=== PATIENT | female | born 1960 | race Caucasian/White ===

== ENCOUNTER 2018-04-13 14:55 | Observation (INO) | payer MEDICAID ==
[~2018-04-13] VITALS: Ht 172.7 cm; Wt 116.9 kg
--- NOTE | 2018-04-13 20:50 | NUR ---
pt ARRIVED ON FLOOR. SBA. IVF BOLUS STARTED. PAIN 5/10, PRN PAIN MED GIVEN (SEE MAR). WATER PROVIDED. VSS. UP TO TOILET TO URINATE. CALL LIGHT WITHIN REACH. NO FURTHER REQUESTS AT THIS TIME.
--- NOTE | 2018-04-13 23:00 | NUR ---
CALL LIGHT ON. pt UP TO TOILET AND BACK TO BED. NO REQUESTS AT THIS TIME. CALL LIGHT WITHIN REACH.
--- NOTE | 2018-04-14 01:04 | NUR ---
CALL LIGHT ON. pt REQUESTED PAIN MEDICATION. PRN PAIN MEDS GIVEN OXY FOR ABD PAIN AND TYLENOL FOR HEADACHE (SEE MAR). PRN NAUSEA MED GIVEN FOR NAUSEA (SEE MAR). pt AMBULATED TO TOILET AND BACK TO BED. CALL LIGHT WITHIN REACH.
--- NOTE | 2018-04-14 02:59 | NUR ---
ASSESSMENT AND VITALS DUE. ASSESSMENT DONE. pt UP TO TOILET AND SHOWER. BACK TO BED. VITALS DONE. EDUCATION PACKET PROVIDED. IVF INFUSING. pt REPORTED HEADACHE IS "GONE" AND ABD PAIN IS 3/10. REFUSED PAIN MEDICATION AT THIS TIME. CALL LIGHT WITHIN REACH. LIGHTS OFF FOR COMFORT. NO FURTHER REQUESTS AT THIS TIME.
--- NOTE | 2018-04-14 05:19 | NUR ---
pt RESTED ON AND OFF DURING SHIFT. ABDOMINAL PAIN CONTROLLED WITH OXY. REPORTED HEADACHE WHICH RESPONDED WELL TO TYLENOL. PRN NAUSEA MEDS X1. SBA. SHOWERED. VOIDING QS. IVF INFUSING. TOLERATING CLEAR LIQUID DIET. USES CALL LIGHT APPROPRIATELY.
--- NOTE | 2018-04-14 08:30 | NUR ---
PT IS RESTING ON BED WITH EYES CLOSED, STATES SHE CONT. TO HAVE A HEADACHE BUT IS BETTER AFTER TYLENOL. STATES SHE JUST WANTS TO SLEEP.
--- NOTE | 2018-04-14 11:03 | NUR ---
PT C/O INCREASING HEADACHE, STATES SHE DRINKS 1-2L OF MOUNTAIN DEW A DAY. SPOKE WITH DR JARVIS. RECIEVED ORDERS TO DECREASE IV RATE TO 100, IBUPROFEN ORDERED. SPOKE WITH KITCHEN AND THEY WILL BRING PT UP SOME MOUNTAIN DEW TO SEE IF IT WILL IMPROVE HEADACHE.
--- NOTE | 2018-04-14 11:55 | NUR ---
PT SITTING UP ON EDGE OF BED WRETCHING, PHENERGAN 12.5MG IV GIVEN DILUTED SLOWLY AND PT ASSISTED BACK TO BED WITH COLD CLOTH TO FORHEAD. IVF INFUSING. STATES SHE IS BEGINNING TO FEEL BETTER.
--- NOTE | 2018-04-14 12:13 | NUR ---
PATIENT SITTING UP IN BED. IV COVERED. SETS UP BATHROOM FOR SHOWER. PATIENT TAKES A SHOWER. LINENS CHANGED. NO OTHER NEEDS AT THIS TIME
--- NOTE | 2018-04-14 12:14 | NUR ---
PT STATES NAUSEA HAS RESOLVED, ASKED TO GET UP TO SHOWER. IVF SL FOR SHOWER WITH INTERIOR DESIGN CONSULTANT IN ROOM AT THIS TIME.
--- NOTE | 2018-04-14 12:31 | NUR ---
TOLERATED SHOWER WELL, STATES SHE IS FEELING MUCH BETTER, HEADACHE IS ALMOST GONE, NO NAUSEA, ASKED IF DIET COULD BE ADVANCED BUT WANTS HER TO CONT. ON FULL LIQUIDS FOR NOW.
--- NOTE | 2018-04-14 14:45 | NUR ---
PT TOSSING AND TURNING IN BED IN OBVIOUS DISCOMFORT. SHE SAID SHE HAD A BAD HEADACHE-6 ON PAIN SCALE. REQUESTED TO SEE HER RN. I INFORMED KENNEL ASSISTANTLINO EWING, SHE FOLLOWED UP.
--- NOTE | 2018-04-14 14:45 | NUR ---
PT C/O HEADACHE AGAIN, OXYCODONE 5MG GIVEN. PT REQUESTED 2 SHERBERTS, DENIES NAUSEA. CALL LIGHT IN EASY REACH.
--- NOTE | 2018-04-14 20:00 | NUR ---
PATIENT RESTING QUIETLY ON HER LEFT SIDE, EYES CLOSED, RESPIRATIONS REGULAR AND NORMAL AT 16.
--- NOTE | 2018-04-14 22:24 | NUR ---
vitals and I&Os complete patient didnt need anything at his time.
--- NOTE | 2018-04-14 23:00 | NUR ---
PATIENT C/O 08/24 ABD PAIN. PATIENT REFUSED OXYCODEONE AND SAID,"IT DOES NOT WORK AT ALL." PREMEDICATED WITH IV ZOFRAN 4MG AND 4MG IV MORPHINE GIVEN SIVP AND PATIENT HAS HAD HER PM MEDS. PATIENT ASKING FOR PHENERGAN, BUT THIS WAS NOT DUE.
--- NOTE | 2018-04-15 | NUR ---
PATIENT RESTING QUIETLY, EYES CLOSED, RESPIRATIONS REGULAR AND EVEN AT 16, CALL LIGHT IN REACH.
--- NOTE | 2018-04-15 02:40 | NUR ---
PATIENT CALLED HAVING 7/10 ABD PAIN. 12.5MG OF PHENERGAN AND 4MGIV MS GIVEN IN 20ML NS SIVP. PAIN HAS ALREADY DROPPED TO A 3/10. PATIENT HAD ME GET HER A COUPLE OF MOUNTAIN DEWS. AM ASSESSMENT DONE. CALL LIGHT IN REACH PATIENT IS GOING TO TRY AND GO [place] TO SLEEP.
--- NOTE | 2018-04-15 04:11 | NUR ---
PATIENT RESTING QUIETLY EYES CLOSED, RESPIRATIONS REGULAR AND EVEN AT 16, ON RIGHT SIDE. CALL LIGHT IN REACH.
--- NOTE | 2018-04-15 05:37 | NUR ---
PATIENT'S PAIN STILL 2-3/10 AND PATIENT IS COMFORTABLE AND NOT ASKING FOR MEDS AT THIS TIME. PATIENT WAS GIVEN 4MG IV MS X2 THIS SHIFT FOR 7/10 OF PAIN. PAIN CONTROL WORKED MUCH BETTER WITH 12.5 MG PHENERGAN IV REQUESTED THE AFTER 2 AM MIXED IN 20 MLS SALINE AND GIVEN SIVP. PATIENT HAS HAD NO OTHER COMPLAINTS.
--- NOTE | 2018-04-15 07:15 | NUR ---
BEDSIDE HANDOFF REPORT RECEIVED FROM DIRECTOR MEDICARE SALES RN. PT RESTING IN BED. LR AT 100. PT RATING PAIN 2/10. PT DENIES NEEDS AT THIS TIME.
--- NOTE | 2018-04-15 08:07 | NUR ---
MED REC COMPLETE
--- NOTE | 2018-04-15 09:25 | NUR ---
PT RESTING IN BED. PT ON ROOMA IR, LUNG SOUNDS CLEAR, DENIES SOB. PT DENIES PAIN, DENIES NAUSEA, TOLERATED CLEAR LIQUID, BOWEL TONES ACTIVE. IV FLUIDS INFUSING LR AT 100 ML/HR. CMS INTACT, WIHTOUT EDEMA. DISCUSSED PLAN OF CARE FOR THE DAY, PT HOPING TO DISCHARGE. DISCUSSED WITH MD, ORDER TO TRY FULL LIQUIDS TO SEE IF PT TOLERATES.
--- NOTE | 2018-04-15 10:00 | NUR ---
Pt is lying comfortably in bed watching tv. Denies pain, nausea, and other complaints at this time. Continues to be on clear liquid diet; consumed 50% of breakfast and tolerated it well; denies abdominal pain with palpation. Call light in reach, personal possessions in reach
== END 2018-04-15 12:10 | disposition home or self-care (01) ==
LOC: ED 14:55 → MS 14:57
PROVIDERS: ADMIT Internal Medicine
DX: K85.00 Idiopathic acute pancreatitis without necrosis or infection (principal); M13.0 Polyarthritis, unspecified; R51 Headache; F17.210 Nicotine dependence, cigarettes, uncomplicated; F43.10 Post-traumatic stress disorder, unspecified; S06.9X0S Unspecified intracranial injury without loss of consciousness, sequela; R41.3 Other amnesia; Z90.49 Acquired absence of other specified parts of digestive tract; Z79.1 Long term (current) use of non-steroidal anti-inflammatories (NSAID)
CPT/HCPCS: 36415; 74177; 80053; 80061; 81001; 82150; 83690; 85025; 96361; 96375; 96376; 99285-25; 99406; C9113; G0378; J1170; J2270; J2405; J2550; J7030; J7120; Q9967

== ENCOUNTER 2018-11-05 21:28 | Emergency (ER) | payer OTHER ==
[~2018-11-05] VITALS: Ht 172.7 cm; Wt 90.7 kg
[~2018-11-05 21:28] MED LIST: NAPROXEN500 MG PO; REMERON30 MG PO
== END 2018-11-05 23:17 | disposition home or self-care (01) ==
LOC: ED 21:28
DX: M25.551 Pain in right hip (principal); M25.552 Pain in left hip; G89.29 Other chronic pain
CPT/HCPCS: 99283

== ENCOUNTER 2018-12-26 06:55 | Inpatient (IN) | payer OTHER ==
--- NOTE | 2018-12-13 12:22 | NUR ---
PATIENT HERE TODAY FOR PREADMISSION APPOINTMENT. SHE IS SCHEDULED ON 12/26/18 FOR A LEFT TOTAL HIP ARTHROPLASTY. SHE IS SCHEDULED TO ATTEND THE [facility] WITH PHYSICAL THERAPY ON 12/15/18. SHE HAS 2 STEPS INTO THE HOME AND NO STEPS INSIDE THE HOME. THERE IS A TUB SHOWER COMBO. SHE IS OBTAINING A SHOWER BENCH AND RAISED TOILET SEAT. SHE DOES NOT HAVE A FRONT WHEELED WALKER BUT [facility]. SHE GO[facility] THROUGH [facility] AND WILL CONTACT THEM REGARDING OBTAINING ONE. HER FRIEND HAS BEEN STAYING WITH HER (ABHILASH) AND WILL TRANSPORT HER HOME WHEN SHE IS DISCHARGED. THIS INFORMATION WILL BE SENT TO DR GILLIS OFFICE AND CASE MANAGEMENT FOR FURTHER FOLLOW UP.
[~2018-12-26] VITALS: Ht 172.7 cm; Wt 113.4 kg
[~2018-12-26 06:55] MED LIST changes: +VITAMIN B125000 MCG PO; +VITAMIN D31000 UNIT PO
--- NOTE | 2018-12-26 09:41 | NUR ---
PT IS ALERT, ORIENTED AND STATED SHE HAS BEEN WAITING 8 YRS FOR THIS SURBERY AND 2 MORE TO COME-BOTH JOINTS. SHE HAD FEW QUESTIONS, DID STATE THAT SHE WAS CHILLED AND HAD LINO RAGSDALE BRING IN A BLANKET.PT REQUESTED PRAYER, WILL FOLLOW NEEDED
--- NOTE | 2018-12-26 13:56 | NUR ---
12/26/18 1356 Nicole Huynh 1308 PT ARRIVED IN PACU SLEEPY WITH NO C/O'S. EVELYN DRSG CDI WITH GREEN LITE FLASHING. 1315 PELVIS XRAY DONE. 1320 HIP CRYO PLACED ON PT. OXYGEN SATS DROPPED TO 86% ON RA. ENCOURAGED COUGH, DEEP BREATHING WITH SATS INCREASING TO 89-90%. O2 AT 2L VIA NC PLACED. SATS 96%. 1330 C/O L HIP PAIN AND LOWER BACK PAIN 09/24. 1337 OFIRMEV 1GM GIVEN IVP. 1355 MOVING AROUND IN BED C/O LOWER BACK PAIN. OFFERED WARM BLANKET TO BACK AND REPOSITIONING ON SIDE. PT REFUSED. STATES "I'LL JUST DEAL WITH IT."
--- NOTE | 2018-12-26 14:34 | NUR ---
PT ARRIVED FROM PACU VIA HOSPITAL BED. AWAK BUT DROWSY, ORIENTED TO ALL. PT REPORTS 8/10 LOW BACK PAIN. ASSISTED PT TO REPOSITION LEGS, ELEVATE RIGHT LEG ON PILLOW PER HER REQUEST. PT NOW APPEARS TO BE SLEEPIN SOUNDLY. VS OBTAINED. LEFT HIP WITH EVELYN DRESSING, CDI, GREEN LIGHT FLASHING. CRYO CUFF TO LEFT HIP. TEDS AND SCD'S IN PLACE TO BLE. IV TO RIGHT FA DRESSING CDI, FLUSHES EASILY. CALL LIGHT WITHIN REACH.
--- NOTE | 2018-12-26 15:40 | NUR ---
PT C/O SEVERE LOWER BACK PAIN. REFUSED OXYCODONE. ASSISTED PT TO REPOSITION TO CHAIR POSITION IN BED. PT REPORTS SIGNIFICANT PAIN RELIEF WITH CHANGE OF POSITION. PAULA CLEAR LIQUIDS, ORDERING DINNER NOW. FAMILY AT BEDSIDE. DENIES NAUSEA OR OTHER CONCERNS AT THIS TIME. CALL LIGHT WITHIN REACH.
--- NOTE | 2018-12-26 16:06 | OR ---
[facility] [address] [place], [place] [address] Signed DATE OF OPERATION: 12/26/2018 SURGEON: Ashish Espino MD PREOPERATIVE DIAGNOSIS: Degenerative joint disease, left hip. POSTOPERATIVE DIAGNOSIS: Degenerative joint disease, left hip. PROCEDURE PERFORMED: Left total hip arthroplasty with anterior approach. FRAME COVERER: Heather Harkins PA-C. Heather was present and critical for all portions of procedure. ANESTHESIA: Spinal. BLOOD LOSS: 300 mL. IMPLANTS: Size 6 Betzy Accolate II with a 52 cup, -5 head. BRIEF HISTORY: Lisa is a 58-year-old female with progressive worsening of osteoarthritis in the hip. She wished to proceed with surgery. Risks, benefits, and alternatives were discussed at length. She understands and wished to proceed. DESCRIPTION OF PROCEDURE: Once consent was obtained, she was taken to the operating room. After adequate anesthesia, she was placed on operating room table. All downside pressure points were well padded. The left hip was prepped and draped in a standard sterile fashion. The anatomy was then laid out using the image intensifier and the incision was made 1 fingerbreadth lateral and 2 distal to the ASIS and extended distally. It should be noted that the anatomy is little bit difficult to feel due to her body habitus. This was taken through skin and subcutaneous tissue. The fascia was then split longitudinally and the tensor fascia catalina was then dissected free off the undersurface Electronically Signed By: ASHISH ESPINO MD 12/26/18 1606 PATIENT NAME: LISA LANIER OPERATIVE REPORT DATE OF : 64 REPORT #: [id number] PHYSICIAN: ASHISH ESPINO MD PCP: NO PRIMARY CARE PHYSICIAN REPORT IS CONFIDENTIAL AND NOT TO BE RELEASED WITHOUT AUTHORIZATION [facility] [address] [place], [place] [address] Signed of the fascia. This allowed visualization of the anterior capsule around the femoral neck. Position was again checked using the image intensifier and we were in the correct position. Anterior capsulotomy was then performed and several large loose bodies were removed. The femoral neck cut was made just below the femoral head and about 1 fingerbreadth above the lesser trochanter. The napkin ring of bone was then removed and the femoral head was removed with ease. The periacetabular soft tissue was removed. To enable better mobilization of the femur, the releases were performed in the superior and posterior aspect of the femur and inferiorly around to the level of the lesser trochanter. The acetabulum was then reamed up to a 52 and 52 cup was selected. The acetabular reaming was done under image intensifier guidance. The 52 cup was then impacted until it was about 45 degrees of abduction and 20 degrees of anteversion. We placed one screw in the posterosuperior quadrant. The acetabular liner was then impacted until it was well seated. Attention was then turned to the proximal femur. Due to again to the patient's body habitus, it was difficult to mobilize the femur, however, with more releases and traction, we were able to get the femur delivered. It was then sequentially broached. It was opened using the [employer] cutter followed by the curved awl and then broached up to a 6. The 6 was found to be well fitting and was left in position with a standard offset neck and -5 head. We then reduced the hip. Image intensifier images looked good. The fit and fill looked good. We then dislocated the hip, removed the trial. The final stem was then impacted until seated at the same level as the trial. This was a little bit proud of my neck cut. The -5 head was placed and the hip was reduced. Again, leg lengths were found to be equal. She was a little bit tight in internal rotation and external rotation was about 45 degrees. The wound was copiously irrigated with normal saline and a dilute povidone-iodine mixture. This was then washed out with further saline. Fascia was then closed using #2 Stratafix, subcutaneous tissue with 0 Stratafix, and skin with 2-0 Stratafix, and Dermabond mesh. She tolerated the procedure well. All sponge, needle, and instrument counts were correct. The wound was dressed with a EVELYN wound VAC dressing at the end of the procedure. Ashish Espino MD BA/MODL /[id number] Electronically Signed By: ASHISH ESPINO MD 12/26/18 1606 PATIENT NAME: LISA LANIER OPERATIVE REPORT DATE OF : 64 REPORT #: [id number] PHYSICIAN: ASHISH ESPINO MD PCP: NO PRIMARY CARE PHYSICIAN REPORT IS CONFIDENTIAL AND NOT TO BE RELEASED WITHOUT AUTHORIZATION [address] [address] Signed Copies: ~ Electronically Signed By: ASHISH ESPINO MD 12/26/18 1606 PATIENT NAME: YANNICKPRIMITIVO OPERATIVE REPORT DATE OF : 64 REPORT #: [id number] PHYSICIAN: ASHISH ESPINO MD PCP: NO PRIMARY CARE PHYSICIAN REPORT IS CONFIDENTIAL AND NOT TO BE RELEASED WITHOUT AUTHORIZATION
--- NOTE | 2018-12-26 17:10 | NUR ---
PT REMAINS IN CHAIR POSITION IN BED. DENIES BACK PAIN AT THIS TIME. VERY DROWSY. SATTING 97% ON 1LNC. LEFT HIP DRESSING REMAIN CDI. SENSATION RETURNED ALL THE WAY TO TOES, GOOD MOVEMENT OF BLE. CALL LIGHT WITHIN REACH.
--- NOTE | 2018-12-26 18:21 | NUR ---
PT 2PA WITH WALKER TO POVOT TRANSFER TO [facility]. PT HAD DIFFICULTY GETTING LEFT LEG UNDER HERSELF STATED "IT'S STILL NUMB, I CAN'T FEEL WHERE IT IS." PT WAS VERY UNSTEADY. VOIDED LARGE AMOUNT WITH INCONTINENT VOID IN BED. PUT ON PT PERSONAL GOWN PER REQUEST. PULL UP ATTENDS IN PLACE. PT ASSISTED TO CHAIR BY PUTTING CHAIR RIGHT BEHIND PT. PT NOW REPORTS 9/10 LEFT HIP PAIN. MEDICATED WITH 10MG PRN OXY. PT NOW ON THE PHONE CHATTING WITH FRIEND, LAUGHIN AND SMILING. O2 SAT 96% ON 1LN NC. SECOND DINNER ORDERED AT THIS TIME. CALL LIGHT WITHIN REACH, FEET ELEVATED.
--- NOTE | 2018-12-26 19:33 | NUR ---
PT UP IN CHAIR, RESTING WITH EYES CLOSED. SHIFT REPORT RECIEVED FROM KAELYN HUYNH. CALL LIGHT IN REACH.
--- NOTE | 2018-12-26 21:31 | NUR ---
PT RESTING IN BED, VISITING WITH FAMILY. SCHEDULED MEDS PROVIDED. NO OTHER NEEDS AT THIS TIME. CALL LIGHT IN REACH.
--- NOTE | 2018-12-26 22:00 | NUR ---
CALL LIGHT ANSWERED. PATIENT ASKED FOR PAIN MEDICATION. PRIMARY RN JAVID NOTIFIED.
--- NOTE | 2018-12-26 22:25 | NUR ---
PT PAIN 5/10, PRN PAIN MED PROVIDED. ASSESSMENT COMPLETED. CRYO CUFF ON, EVELYN CDI, BLINKING GREEN, HEEL PROTECTORS ON. INCISION DRESSING CDI, WNL. ICE FOR DRINK AND SANDWICH PROVIDED. NO OTHER NEEDS. CALL LIGHT IN REACH.
--- NOTE | 2018-12-27 01:14 | NUR ---
PT RESTING IN BED, WATCHING TV. SCHEDULED MED PROVIDED. NO NEEDS AT THIS TIME. CALL LIGHT IN REACH.
--- NOTE | 2018-12-27 03:43 | NUR ---
PT RESTING IN BED, EYES CLOSED. RR 20, EVEN, UNLABORED. CPOX 92%, RA. CALL LIGHT IN REACH.
--- NOTE | 2018-12-27 04:54 | NUR ---
PT SLEPT OFF AND ON THIS SHIFT. SPO2 TRENDING MID 90S ON RA. PAIN WELL MANAGED WITH SCHEDULED AND PRN PAIN MEDS. EVELYN CDI, FLASHING GREEN. PT TOLERATED CRYO CUFF, DANIA HOSE, SCDs, HEEL PROTECTORS AND REGULAR DIET WELL.
--- NOTE | 2018-12-27 05:10 | NUR ---
PT SLEPT OFF AND ON THIS SHIFT. SPO2 TRENDING MID 90S ON RA. PAIN WELL MANAGED WITH SCHEDULED AND PRN PAIN MEDS. EVELYN CDI, FLASHING GREEN. PT TOLERATED CRYO CUFF, DANIA HOSE, SCDs, HEEL PROTECTORS AND REGULAR DIET WELL. 2P ASSIST WITH GAIT BELT TO [facility]. IV CDI, WNL, FLUSHED WELL. VSS. A&O X4.
--- NOTE | 2018-12-27 06:17 | NUR ---
PT STATES PAIN 6/10. PRN PAIN MED PROVIDED. ASSESSMENT COMPLETED. SMAKK AREA OF SANGUINOUS BLOOD ON EVELYN, FLASHING GREEN. NO OTHER NEEDS AT THIS TIME. CALL LIGHT IN REACH.
--- NOTE | 2018-12-27 08:10 | NUR ---
PT SITTING UP IN BED EATING BREAKFAST, PAULA WELL. DENIES PAIN AT THIS TIME. REPORTS NUMBNESS OF MOST OF LEFT HIP BUT REPORTS FULL SENSATION THROUGHOUT THE REST OF BLE. PENCIL ERASER SIZED SPOT OF RED BLOOD NOTED ON EVELYN DRESSING, GREEN LIGHT FLASHING. CRYO CUFF TO LEFT HIP. SCD'S AND TEDS IN PLACE TO BLE. IV FLUSHES EASILY, DRESSING CDI. CALL LIGHT WITHIN REACH.
--- NOTE | 2018-12-27 10:30 | NUR ---
PATIENT SITTING UP IN BED WATCHING TV. FACE AND HANDS WASHED. ORAL CARE DONE. FRESH ICE PUT INTO CRYO. CALL BUTTON IN REACH. SCD'S ON. CALL BUTTON IN REACH. NO OTHER NEEDS AT THIS TIME.
--- NOTE | 2018-12-27 11:50 | NUR ---
PT CALLED FOR ASSISTANCE TO RESTROOM. PT 2PA WITH WALKER TO [facility]. MUCH MORE STABLE ON FEET THIS TIME. ABLE TO TAKE SMALL STEPS. PT STATE "I CAN ACTUALLY FEEL MY BUTT A LITTLE BIT THIS MORNING." VOIDED LARGE AMOUNT THEN AMB SHORT DISTANCE TO RECLINER. SITTING UP WITH FEET ELEVATED. NOW EATING LUNCH. DENIES PAIN OR OTHER CONCERN. CALL LIGHT WITHIN REACH.
--- NOTE | 2018-12-27 12:30 | NUR ---
PT RESTING IN BED, MENTIONED THAT SHE HAD A ROUGH NIGHT. LEG IS STILL NUMB, P.T. HAS NOT YET BEEN IN. PT HAD TO SLEEP ON HER BACK AND THAT WAS NOT HOW SHE IS ACCUSTOMED TO SLEEPING. RM DARK AND COOL, GAVE ENCOURAGEMENT AND A BLESSING. WILL FOLLOW NEEDED
[2018-12-27] MEDS ORDERED: OMEPRAZOLE40 MG PO (13:05)
--- NOTE | 2018-12-27 13:05 | NUR ---
MED REC COMPLETE
--- NOTE | 2018-12-27 13:48 | NUR ---
ADMINISTERED 2 TABS OXYCODONE, PATIENT WORKING WITH PHYSICAL THERAPY. RATES PAIN 6/10 ON PAIN SCALE REPORTS CONCERNED BLOCK WEARING OFF.
--- NOTE | 2018-12-27 14:28 | NUR ---
PT RETURNED TO ROOM AFTER AMB HALLWAY WITH P.T. SITTING UP IN RECLINER NOW. REPORTS 07/25 LEFT HIP PAIN. MEDICATED WITH SCHEDULED TYLENOL AND GABAPENTIN. CALL LIGHT WITHIN REACH.
--- NOTE | 2018-12-27 15:50 | NUR ---
PT 1PA WITH WALKER TO AMB TO RESTROOM, VOIDED WITHOUT DIFFICUTLY. AMB TO BED. PT TUCKED INTO BED. SCD'S AND TEDS IN PLACE BLE. CRYO CUFF TO LEFT HIP. PT DENIES PAIN AT THIS TIME. STATES SHE WOULD LIKE TO TAKE A NAP. CALL LIGHT AND PERSONAL BELONGINGS WITHIN REACH.
--- NOTE | 2018-12-27 17:10 | NUR ---
PT MEDICATED WITH SCHEDULED MEDS. ASSISTED TO BSC AND BACK TO BED. PT REPORTS FEELING VERY TIRED "I HAVE ONLY BEEN ABLE TO SLEEP A COUPLE HOURS AT A TIME." DINNER ARRIVING SOON. ENCOURAGED PT TO TRY AND GET SOME REST AFTER DINNER. DENIES PAIN AT THIS TIME. LEFT HIP DRESSING REMAINS UNCHANGED. CALL LIGHT WITHIN REACH.
--- NOTE | 2018-12-27 19:05 | NUR ---
SHIFT REPORT RECIEVED FROM KAELYN HUYNH. PT RESTING WITH EYES CLOSED. CALL LIGHT IN REACH.
--- NOTE | 2018-12-27 21:12 | NUR ---
PT ASSESSMENT COMPLETED. EVELYN INTACT, FLASHING GREEN. BLE TINGLING. SWELLING NOTED NEAR EVELYN ON ANTERIOR THIGH. SCHEDULED MEDS PROVIDED. PAIN 6/10, PRN PAIN MED PROVIDED. NO OTHER NEEDS AT THIS TIME. CALL LIGHT IN REACH.
--- NOTE | 2018-12-27 23:24 | NUR ---
PT RESTING IN BED, EYES CLOSED. RR 18, EVEN, UNLABORED. BED ALARM ON, CALL LIGHT IN REACH.
--- NOTE | 2018-12-28 01:25 | NUR ---
PT RESTING IN BED, EYES CLOSED. RR 16, EVEN, UNLABORED. CALL LIGHT IN REACH.
--- NOTE | 2018-12-28 02:58 | NUR ---
PT UP TO BR AND BACK TO BED WITH MILLI HUYNH. PAIN 8/10, PRN PAIN MED PROVIDED. NO OTHER NEEDS AT THIS TIME. CALL LIGHT IN REACH.
--- NOTE | 2018-12-28 03:00 | NUR ---
PT CALLS FOR BR AND PAIN MANAGEMENT. PRN PAIN MED PROVIDED. UP TO BR AND BACK TO BED 1P SBA. ASSESSMENT COMPLETED. NO OTHER NEEDS. CALL LIGHT IN REACH.
--- NOTE | 2018-12-28 03:37 | NUR ---
PT RESTING IN BED, EYES CLOSED.RR 18, EVEN, UNLABORED. CRYO CUFF, DANIA HOSE, HEEL PROTECTORS AND SCDs ON. CALL LIGHT IN REACH.
--- NOTE | 2018-12-28 05:26 | NUR ---
PT SLEPT ON AND OFF THIS SHIFT. PAIN WELL MANAGED WITH SCHEDULED AND PRN PAIN MEDS. PT TOLERATED CRYO CUFF, DANIA HOSE, HEEL PROTECTORS AND SCDs WELL. 1P SBA, FWW. BED ALARMS ON. EVELYN HAS 2 SMALL AREAS OF DRY SANGUINOUS BLOOD, FLASHING GREEN. MILD SWELLING TO LEFT HIP. IV CDI, WNL, FLUSHED WELL.
--- NOTE | 2018-12-28 05:55 | NUR ---
PT WAKES TO VOICE. SCHEDULED MED PROVIDED. PAIN 07/25. VS, I&O COMPLETED. NO OTHER NEEDS AT THIS TIME. BEED ALARM ON, CALL LIGHT IN REACH.
--- NOTE | 2018-12-28 06:51 | NUR ---
PT PAIN 09/24. PRN PAIN MED PROVIDED. NO OTHER NEEDS. CALL LIGHT IN REACH. BED ALARM ON.
--- NOTE | 2018-12-28 07:20 | NUR ---
report received pt sleeping soundly
--- NOTE | 2018-12-28 09:00 | NUR ---
PT UP TO TOILET DOES WELL AMBULATING REFUSES TO GO TO CHAIR RETURNS TO BED INSTEAD
--- NOTE | 2018-12-28 11:12 | NUR ---
PATIENT RESTING IN BED WITH EYES CLOSED. FRESH ICE WATER GIVEN. CALL BUTTON IN REACH.
--- NOTE | 2018-12-28 11:14 | NUR ---
ICE IN CRYO
--- NOTE | 2018-12-28 11:30 | NUR ---
PT CALLS APPROPRIATELY UP TO TOILET AGAIN C/O HIP PAIN MEDS PROVIDED. PT STATES SHE IS DOING SO MUCH BETTER TODAY AND IS ABLE TO MOVE MORE EASILY. RETURNS TO BED SCD'S IN PLACE
--- NOTE | 2018-12-28 13:46 | NUR ---
In and spoke with pt about her needs when she goes home. She states she has girlfriend staying with her who has adult daughters. They can help clean and cook. Asked if they are willing to help her with her personal care as she is unable to dress and put socks on. She states they will assist, but not sure how much. She states she can get out of bed without asssist. Voiced my concern as she has a tub shower and is not willing to buy a transfer bench. Per PT and OT [facility] this equipment. Pt again stating she has frequent back pain and pain from her surgery. She also states she will need further surgeries. Discussed if she feels she needs a SNF for further strengthening, she declines this. She states she would HH PT and a bath aid. Informed I will request orders from Dr. Espino.
--- NOTE | 2018-12-28 13:49 | NUR ---
dr donahue in to see pt
--- NOTE | 2018-12-28 13:59 | NUR ---
pt up working with p/t
--- NOTE | 2018-12-28 17:13 | NUR ---
PT RESTING IN BED EATING EVENING MEAL AGREES OXY 2 INSTEAD OF ONE IS MORE EFFECTIVE FOR HER DENIES OTHER NEEDS OR DISCOMFORTS
--- NOTE | 2018-12-28 19:20 | NUR ---
SHIFT REPORT RECIEVED FROM BHAVNA HUYNH. PT RESTING WITH EYES CLOSED. RR 16, EVEN, UNLABORED. CALL LIGHT IN REACH.
--- NOTE | 2018-12-28 21:36 | NUR ---
ROUNDED CHARGE. PATIENT IS RESTING IN BED. PATIENT IS REQUESTIING PAIN MEDICATION. NOTIFIED JAVID HUYNH.
--- NOTE | 2018-12-28 21:53 | NUR ---
PATIENT IS RESTING IN BED. PATIENT RATES PAIN AT A 5/10. PATIENTS SCHEDULED MEDICATIONS FOR PAIN GIVEN PER ORDER. PRN PAIN MEDICATIONS GIVEN PER ORDER. PATIENT DENIES ANY FURTHER NEEDS. CALL LIGHT IN REACH.
--- NOTE | 2018-12-28 22:05 | NUR ---
PT WAKES TO VOICE. ASSESSMENT COMPLETED. PT DENIES PAIN. IV CDI, WNL, FLUSHED WELL. CRYO CUFF, DANIA HOSE, SCDs, AND HEEL PROTECTORS ON. EVELYN HAS 2 SMALL AREAS OF DRIED BLOOD, BLINKING GREEN. NO OTHER NEEDS. CALL LIGHT IN REACH.
--- NOTE | 2018-12-29 00:02 | NUR ---
PT RESTING IN BED, EYES CLOSED. RR 16, EVEN, UNLABORED. CALL LIGHT IN REACH.
--- NOTE | 2018-12-29 01:31 | NUR ---
PT RESTING IN BED, EYES CLOSED. RR 18, EVEN, SLIGHT SNORING. CALL LIGHT IN REACH.
--- NOTE | 2018-12-29 02:52 | NUR ---
PT STATES PAIN 6/10, PRN PAIN MED PROVIDED. ASSESSMENT COMPLETED. 3 SMALL SPOTS OF DRIED BLOOD ON EVELYN, BLINKING GREEN. SWELLING NOTED TO UPPER LEFT ANTERIOR THIGH. RED AREA NOTED TO RIGHT WRIST. PT DECLINES FOAM TO PROTECT RED AREA. IV CDI. CRYO CUFF, DANIA HOSE, HEEL PROTECTORS AND SCDs ON. PT UP TO BR. NO OTHER NEEDS. CALL LIGHT IN REACH.
--- NOTE | 2018-12-29 05:38 | NUR ---
PT UP TO BSC. PAIN 09/24, CRYO CUFF, REPOSITIONED. DISCUSSED MEDICATIONS FOR PAIN. NO OTHER NEEDS AT THIS TIME. CALL LIGHT IN REACH.
--- NOTE | 2018-12-29 06:11 | NUR ---
PT STATES HER [AIN IS 07/25, PRN AND SCHEDULED PAIN MED PROVIDED. CRYO CUFF ICE REFILLED. NO OTHER NEEDS AT THIS TIME. CALL LIGHT IN REACH.
--- NOTE | 2018-12-29 06:29 | NUR ---
PT SLEPT OFF AND ON THIS SHIFT. LLE PAIN MANAGED WITH SCHEDULED AND PRN PAIN MEDS. PT TOLERATED CRYO CUFF, DANIA HOSE, SCDs AND HEEL PROTECTORS WELL. IV CDI, WNL, FLUSHED WELL. PT USED BSC SHE SAID IT WAS "TOO PAINFUL" TO GO TO THE BR. EVELYN HAS 3 SMALL SPOTS OF DRIED BLOOD, BLINKING GREEN. 1+ SWELLINBG NOTED TO THE ANTERIOR THIGH.
--- NOTE | 2018-12-29 07:15 | NUR ---
Report received, orders acknowledged. Patient sleeping in bed, call light within reach.
[2018-12-29] MEDS ORDERED: GABAPENTIN600 MG PO (08:01)
[2018-12-29] MEDS ORDERED: ASPIRIN EC325 MG PO (08:01)
[2018-12-29] MEDS ORDERED: OXYCODONE HCL5 MG PO (08:01)
[2018-12-29] MEDS ORDERED: CELECOXIB200 MG PO (08:01)
[2018-12-29] MEDS ORDERED: TRAMADOL HCL50 MG PO (08:01)
[2018-12-29] MEDS ORDERED: SENNA LAX8.6 MG PO (08:02)
[2018-12-29] MEDS ORDERED: POLYETHYLENE GL17 GM PO (08:02)
--- NOTE | 2018-12-29 08:30 | NUR ---
Patient sitting up in bed watching tv. AM medications given, assessment complete. Dressing on left hip has 3 alejo-sized spots of shadowing, the rest of dressing is C/D/I. Pillows placed underneath knees. No further needs at this time, call light within reach.
--- NOTE | 2018-12-29 10:01 | NUR ---
PATIENT PREMEDICATED PRIOR TO WORKING WITH PT (SEE MAR)
--- NOTE | 2018-12-29 13:00 | NUR ---
In and spoke with Lisa. She states she is going home today. Friend will pick her up. Feels she would benefit from Home Health. [facility]
--- NOTE | 2018-12-29 13:55 | NUR ---
Discharge instructions given, all questions and concerns answered. Patient verbalized understanding of follow-up appointment. Vital signs taken, IV D/C'd. All personal belongings collected. Patient left unit via wheelchair with friend and nursing staff.
--- NOTE | 2018-12-29 14:00 | NUR ---
Received request from [place] for H&P, Orders, medlist, PT/OT eval and call stating Dr Camacho is working on this. Above faxed to the [place]. Conf. notice received. Above with face sheet added email/faxed to [facility].
== END 2018-12-29 13:55 | disposition home or self-care (01) | DRG 470 ==
LOC: DSVR 06:55 → DS 06:55 → MS 06:55 → DSVR 06:55 → MS 06:55 → EDSTATUS 08:15 → MS 08:15 → DSVR 14:42 → MS 14:42 → DS 12-28 13:59 → MS 12-28 14:00
PROVIDERS: ADMIT Specialist
PROC: 3E0T3BZ Introduction of Anesthetic Agent into Peripheral Nerves and Plexi, Percutaneous Approach (ICD-10-PCS; 2018-12-26)
PROC: 0SRB04Z Replacement of Left Hip Joint with Ceramic on Polyethylene Synthetic Substitute, Open Approach (ICD-10-PCS; principal; 2018-12-26 09:30)
DX: M16.12 Unilateral primary osteoarthritis, left hip (principal); Z68.41 Body mass index [BMI] 40.0-44.9, adult; G89.18 Other acute postprocedural pain; E66.9 Obesity, unspecified; Z79.899 Other long term (current) drug therapy; Z79.1 Long term (current) use of non-steroidal anti-inflammatories (NSAID)
CPT/HCPCS: 01214; 64447; 64448; 72170; 73502; 76942; 94760; 94762; 97110; 97116; 97161; 97165; C1776; J0131; J0461; J0690; J0735; J1100; J1885; J2250; J2405; J2704; J2765; J2795; J3010; J7121; J8540

== ENCOUNTER 2018-12-30 17:36 | Emergency (ER) | payer OTHER ==
[~2018-12-30] VITALS: Ht 172.7 cm; Wt 108.9 kg
[~2018-12-30 17:36] MED LIST changes: +ASPIRIN EC325 MG PO; +CELECOXIB200 MG PO; +GABAPENTIN600 MG PO; +OMEPRAZOLE40 MG PO; +OXYCODONE HCL5 MG PO; +POLYETHYLENE GL17 GM PO; +SENNA LAX8.6 MG PO; +TRAMADOL HCL50 MG PO
== END 2018-12-30 19:58 | disposition home or self-care (01) ==
LOC: ED 17:36
DX: M79.89 Other specified soft tissue disorders (principal); F17.200 Nicotine dependence, unspecified, uncomplicated; Z86.73 Personal history of transient ischemic attack (TIA), and cerebral infarction without residual deficits; Z79.899 Other long term (current) drug therapy; Z79.82 Long term (current) use of aspirin; Z96.642 Presence of left artificial hip joint
CPT/HCPCS: 73502; 93971; 99284-25

== ENCOUNTER 2019-06-12 16:23 | Emergency (ER) | payer OTHER ==
[~2019-06-12] VITALS: Ht 172.7 cm; Wt 108.9 kg
--- OUTSIDE RECORDS SUMMARY | ~2019-06-12 | XMS | Clinical Summary ---
Demographics + + + | Address | [address] | | | [place] [address] | + + + | Home Phone | | + + + | Preferred Language | Unknown | + + + | Marital Status | Unknown | + + + | Uatsdin Affiliation | Unknown | + + + | Race | Unknown | + + + | Ethnic Group | Unknown | + + + Author + + + | Author | [facility] | | | and [place] | + + + | Organization | [facility] | | | and [place] | + + + | Address | Unknown | + + + | Phone | Unavailable | + + + Care Team Providers + +------+ + | Care Musculoskeletal Physiotherapist Name | Role | Phone | + +------+ + PCP | Unavailable | + +------+ + Allergies Not on File Medications Not on file Active Problems Not on file Social History + +-------+ +--------+------+ | Tobacco Use | Types | Packs/Day | Years | Date | | | | | Used | | + +-------+ +--------+------+ | Never Assessed | | | | | + +-------+ +--------+------+ + + + | Sex Assigned at | Date Recorded | | | | + + + | Not on file | | + + + + + + + | Job Start Date | Occupation | Industry | + + + + | Not on file | Not on file | Not on file | + + + + + + + + | Travel History | Travel Start | Travel End | + + + + + + | No recent travel history available. | + + Last Filed Vital Signs Not on file Plan of Treatment +--------+ + + + + | Date | Type | Specialty | Care Team | Description | +--------+ + + + + | 08/16/ | Appointment | Radiology | Scar Camacho | | | 2019 | | | MD Olamide Nieto | | | | | | [place] | | | | | | [place] [address] | | | | | | [phone] | | | | | | | | +--------+ + + + + + + + + + | Health Maintenance | Due Date | Last Done | Comments | + + + + + | Hepatitis C | | | | | Screening | 3 | | | + + + + + | Vaccine: | | | | | Dtap/Tdap/Td (1 - | 4 | | | | Tdap) | | | | + + + + + | Cervical Cancer | | | | | Screening (Pap) | 3 | | | + + + + + | Colorectal Cancer | | | | | Screening | 3 | | | | (Colonoscopy) | | | | + + + + + | Vaccine: Zoster (1 | | | | | of 2) | 3 | | | + + + + + | Breast Cancer | | | | | Screening | 8 | | | + + + + + | Vaccine: Influenza | | | | | (Season Ended) | 0 | | | + + + + + Results Not on filefrom Last 3 Months Advance Directives + + + + + | Type | Date Recorded | Patient | Explanation | | | | Chemicals Distiller | | + + + + + | Power of | | | | | Stem Sizer | | | | + + + + + | Advance | | | | | Directive | | | | + + + + +"
--- OUTSIDE RECORDS SUMMARY | ~2019-06-12 | XMS | Clinical Summary ---
Demographics + + + | Address | [address] | | | [place] [address] | + + + | Home Phone | | + + + | Preferred Language | Unknown | + + + | Marital Status | Unknown | + + + | Taoism Affiliation | Unknown | + + + | Race | Unknown | + + + | Ethnic Group | Unknown | + + + Author + + + | Author | [facility] | | | and [place] | + + + | Organization | [facility] | | | and [place] | + + + | Address | Unknown | + + + | Phone | Unavailable | + + + Care Team Providers + +------+ + | Care Early Childhood Name | Role | Phone | + [...] | | | | | [place] [address] | | | | | | [phone] | | | | | | | [...] Patient | Explanation | | | | Associate Professor Of Management | | + + + + + | Power of | | | | | Salad Chef | | | | + + + + + | Advance | | | | | Directive | | | | + + + + +"
[2019-06-12] MEDS ORDERED: PERCOCET 5-3251 EACH PO (17:50)
[2019-06-12] MEDS ORDERED: PREDNISONE20 MG PO (17:50)
== END 2019-06-12 17:57 | disposition home or self-care (01) ==
LOC: ED 16:23
DX: M54.12 Radiculopathy, cervical region (principal); F17.200 Nicotine dependence, unspecified, uncomplicated; Z79.899 Other long term (current) drug therapy
CPT/HCPCS: 72040; 99284-25; J1100

== ENCOUNTER 2019-09-25 05:50 | Day surgery (SDC) | payer OTHER ==
--- NOTE | 2019-09-12 15:01 | NUR ---
PATIENT SEEN TODAY FOR SURGICAL PREADMISSION FOR RIGHT TOTAL HIP WITH DEBO, SURGERY DATE 09/25/19. PATIENT REPORTS SHE LIVES ALONE IN HER [place]. PATIENT REPORTS CONCERN REGARDING MULTIPLE STAIRS FROM INSIDE AND OUTSIDE OF BASEMENT, ROUGHLY 12-14 STAIRS FROM EITHER ENTRANCE WITH RAILS. PATIENT STATES SHE WILL RENT A HOTEL ROOM FOR 1 WEEK AFTER DISCHARGE. PATIENT STATES SHE DOES NOT HAVE FWW AND WILL POSSIBLY BORROW A FRIENDS, INFORMATION PROVIDED ON [facility] LOAN CLOSET, PATIENT STATES SHE WILL F/U TODAY. INFORMED PATIENT TO BRING IN FWW ON THE DAY OF SURGERY, VERBALIZED UNDERSTANDING. REPORTS SMALL WALK-IN SHOWER WITH NO HAND-HELD SHOWER HEAD, STATES SHOWER IS TOO SMALL FOR SHOWER CHAIR. DENIES NEED FOR TOILET SEAT RISER AND STATES SHE WILL USE RAISED COMMODE INSTEAD. PATIENT STATES SHE HAS P/T APPOINTMENT SCHEDULED WITH [facility] OUTPATIENT P/T. REPORTS CONCERN SHE WILL NOT HAVE TRANSPORT TO APPOINTMENTS. PATIENT REQUESTING ADDITIONAL F/U AND CARE COORDINATION WITH [place] FOR MEDICAL TRANSPORT, [facility] HOME HEALTH NURSE, AND HOME P/T IF POSSIBLE. PATIENT STATES SHE WAS ADVISED BY THE [place] TO LOOK INTO GERIATRIC EXTENDED CARE FOR RESOURCES. PHONE CALL TO CASE MANAGEMENT FOR ADDITIONAL COORDINATION. PATIENT REQUESTING TO BE ADMITTED TO HOSPITAL DURING ACUTE RECOVERY PERIOD, NOTED IN PROVIDER PLAN. PATIENT STATES HER MOTHER WILL ASSIST HER FOR 1 WEEK AFTER DISCHARGE WHILE STAYING AT [facility].
[~2019-09-25] VITALS: Ht 172.7 cm; Wt 113.4 kg
[~2019-09-25 05:50] MED LIST changes: +MULTI-VITAMIN1 EACH PO; +PERCOCET 5-3251 EACH PO; +PREDNISONE20 MG PO; +VITAMIN B122500 MCG PO
--- NOTE | 2019-09-25 10:03 | NUR ---
09/25/19 1003 Nicole Huynh 0910 PT ARRIVED IN PACU SLEEPY WITH NO C/O'S. 15 PELVIS XRAY DONE. 919 PT INCONTINENT OF LG AMOUNT OF URINE. LINEN CHANGED AND CRYO CUFF PLACED ON R HIP. 929 C/O L SHOULDER PAIN. NO REDNESS OR SWELLING NOTED ON SHOULDER. SPOKE WITH ANESTHESIA AND PT C/O L SHOULDER PAIN PREOP. 0950 TO DS. REPORT GIVEN TO RN.
--- NOTE | 2019-09-25 10:05 | NUR ---
PATIENT BACK TO FLOOR FROM RECOVERY, PATIENT AWAKE. REPORTS NO PAIN. NO NAUSEA. DRESSING C/D/I WITH KYRO IN PLACE. VSS. PROVIDED ICE WATER AND SNACKS. PATIENT NOW TALKING WITH LOVED ONES ON PHONE, APPEARS TEARY EYED. PROVIDED TISSUES AND WARM BLANKETS. CALL LIGHT WITHIN REACH.
--- NOTE | 2019-09-25 11:29 | NUR ---
PATIENT AWAKE ON AND OFF. STARTING TO MOVE FEET BACK AND FORTH. PATIENT REPORTS FEELING NUMB AND TINGLY. REPORTS PAIN LEVEL 0/10 ON PAIN SCALE. ENCOURAGING TO DEEP BREATH. PATIENT APPEARS TO SNORE. NO NAUSEA. CALL LIGHT WITHIN REACH.
--- NOTE | 2019-09-25 12:28 | NUR ---
PATIENT STATES " I JUST FEEL SLEEPY" AWAKES WITH VERBAL STIMULI. DRESSING C/D/I WITH KYRO ON. PATIENT REPORTS NO PAIN, INCREASED TINGLY SENSATION. PROVIDED PATIENT WITH APPLE JUICE. ABSORBANT PAD UNDERNEATH PATIENT DRY. PATIENT REPORTS NO URGE TO VOID. TOES WARM JACKIE WITH STRONG PEDAL PULSES.
--- NOTE | 2019-09-25 13:07 | NUR ---
PATIENT DROWSY, AWAKE ON AND OFF. APPEARS TO SNORE. DRESSING C/D/I. KRYO ON, SCDS RUNNING. PATIENT RATES PAIN 0/10 ON PAIN SCALE. STATES " I THINK THE NUBMNESS IS WEARING OFF AND I CAN FEEL THE BOTTOM OF MY FEET, BUT DON'T FEEL LIKE I COULD MOVE MY LEG VERY WELL". CALL LIGHT WITHIN REACH.
--- NOTE | 2019-09-25 13:13 | NUR ---
CALL TO [facility] TO LET PHYSICAL THERAPY KNOW THAT PATIENT WOULD LIKE TO WORK WITH THEM AND POSSIBLY GET UP TO [facility].
--- NOTE | 2019-09-25 14:20 | NUR ---
PHYSICAL THERAPY TO ROOM, PATIENT UP TO [facility]. STEADY ON FEET WITH WHEELCHAIR. PATIENT THEN LEFT TO [facility] WITH [facility] THERAP[facility] FOR STAIR EVALUATION. PATIENT STATED " I AM GOING TO A HOTEL, SO I DON'T HAVE TO STAY". DRESSING INTACT, RATES PAIN 0/10 ON PAIN SCALE.
--- NOTE | 2019-09-25 15:00 | NUR ---
PATIENT BACK TO FLOOR, PHYSICAL THERAPY REPORTED PATIENT OKAY TO DISCHARGE. CALL TO DR. GILLIS, WHO VERBALIZED WOULD CALL IN PERSCRIPTIONS FOR PATIENT. PATIENT EATING CHEESEBURGER AND FRIES. STATES " IF I HAD AN OPTION I WAS GOING TO STAY". PROVIDED PATIENT WITH REASSURANCE THAT SHE DID WELL WITH PHYSICAL THERAPY, AND BECAUSE SHE SET UP SAFE ARRANGEMENTS WITH HOTEL THAT REMOVED DANGEROUS STAIRS, SHE WOULD BE ABLE TO SAFELY DISCHARGE TO THE HOTEL WITH HER FAMILY.
--- NOTE | 2019-09-25 15:30 | NUR ---
PROVIDED DISCHARGE INSTRUCTION TO PATIENT, REPORTED PAIN MEDICATION STARTING TO EASE PAIN FROM WORKING WITH PHYSICAL THERAPY. ANSWERED QUESTIONS AND CONCERNS. PATIENT DISCHARGED WITH DRESSING CHANGE, CRYO CUFF, FOAM HIP PAD. VSS. DRESSING C/D/I. NO OTHER NEEDS AT THIS TIME.
--- NOTE | 2019-09-26 07:42 | OR ---
[facility] [address] [place], [place] [address] Signed DATE OF OPERATION: 09/25/2019 SURGEON: Ashish Espino MD PREOPERATIVE DIAGNOSIS: Posttraumatic degenerative joint disease, right hip. POSTOPERATIVE DIAGNOSIS: Posttraumatic degenerative joint disease, right hip. PROCEDURE PERFORMED: Right total hip arthroplasty with Chip. CEMENT TESTER ASSISTANT: NINFA Martinez. Heather was present and critical for all portions of the procedure. ANESTHESIA: Spinal. BLOOD LOSS: 200 mL. IMPLANTS: Betzy Accolade II 5 stem with a 52 cup and +0 head. BRIEF HISTORY: Jenifer is a 59-year-old female with worsening arthritis. She had a left total hip with good results and had prior femoral rodding of the right femur with subsequent healing and removal of the chadwick. 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 Risks, benefits, and alternatives were discussed with her, and she elected to proceed. DESCRIPTION OF PROCEDURE: Once consent was obtained, she was taken to the operating room. After adequate anesthesia, she was placed in the left lateral decubitus position with an axillary roll. All downside pressure points well padded. The right hip was then prepped and draped in a standard sterile fashion up to the bottom of the ribcage. The pins for the Chip guidance system 3 x 3 were inserted in the iliac crest, four fingerbreadths posterior to the ASIS. The attention was then turned to the approach. Skin was incised Electronically Signed By: ASHISH ESPINO MD 09/26/19 0742 PATIENT NAME: JENIFER LANIER OPERATIVE REPORT DATE OF : 64 REPORT #: [id number] PHYSICIAN: ASHISH ESPINO MD PCP: OTHER PCP REPORT IS CONFIDENTIAL AND NOT TO BE RELEASED WITHOUT AUTHORIZATION [facility] [address] [place], [place] [address] Signed longitudinally, carried through skin and subcutaneous tissue. She had a large pannus that was incised down to the IT band. Bleeders were cauterized as we went. IT band was split longitudinally and the underlying tissue was split as best we could. The bursal tissue was adherent to the vastus, which was adherent to the IT band and was all elevated as one flap and once it was elevated. The gluteus medius was elevated off the anterior trochanter only little bit. The capsule was then split longitudinally and elevated off the femoral neck and the entire sleeve anteriorly was elevated around the lesser trochanter. The significant heterotopic ossification in the abductors was then easily located and was excised as best we could without destroying the tendon. Once this was accomplished, periacetabular soft tissue was removed. The hip was dislocated. Femoral neck cut made one fingerbreadth above the lesser trochanter. Prior to dislocation, we did place the Chip checkpoints and registered the hip with the computer. Once this was accomplished, the femoral neck cut was made and the periacetabular soft tissue was cleaned off. We then brought the robot in and secured it. The acetabulum was then reamed up to a 52 and the 52 cup was impacted until it was well-seated. There was excellent purchase. No screws were felt to be necessary. The liner was then impacted into position. The proximal femur was then approached. The scar tissue was released superiorly along inside of the greater trochanter. This allowed good visualization. We were then able to open the proximal femur with a cookie cutter, followed by the awl. The femur was then broached up to a 5. The computer templated for 6, however, I did not feel like the 6 was going to be able to be deep enough. We left the 5 in position, put a standard offset head and neck and reduced the hip. We then checked the length and offset with computer, was found to be equal to our preop planning. We then dislocated the hip, removed the trials. The final stem was impacted to the same level as the trial and the posterior head was impacted. The hip was again reduced. Final checkpoints found equal leg lengths and 1 mm greater offset. The checkpoint was removed. The wound was copiously irrigated with antibiotic solution. The periarticular soft tissues were injected with 100 mL of ropivacaine and Toradol mixture. The capsule was then closed using #1 Ethibond. The vastus and IT band layers were closed as independently as we could using #1 StrataFix. The fat layer was closed using #1 Vicryl, subcutaneous layer with #0 StrataFix, and skin with christofer. The wounds were dressed with EVELYN wound VAC dressing. She was awakened and taken to the recovery room in satisfactory condition. All sponge, needle, and instrument counts were correct. Ashish Espino MD BA/MODL Electronically Signed By: ASHISH ESPINO MD 09/26/19 0742 PATIENT NAME: JENIFER LANIER OPERATIVE REPORT DATE OF : 64 REPORT #: [id number] PHYSICIAN: ASHISH ESPINO MD PCP: OTHER PCP REPORT IS CONFIDENTIAL AND NOT TO BE RELEASED WITHOUT AUTHORIZATION [facility] [address] [place] [address] Signed /[id number] Copies: ~ Electronically Signed By: ASHISH ESPINO MD 09/26/19 0742 PATIENT NAME: JENIFER LANIER OPERATIVE REPORT DATE OF : 64 REPORT #: [id number] PHYSICIAN: ASHISH ESPINO MD PCP: OTHER PCP REPORT IS CONFIDENTIAL AND NOT TO BE RELEASED WITHOUT AUTHORIZATION
== END 2019-09-25 15:30 | disposition home or self-care (01) ==
LOC: DS 05:50
PROVIDERS: Specialist
PROC: 8E0YXBZ Computer Assisted Procedure of Lower Extremity (ICD-10-PCS; 2019-09-25)
PROC: 0SR90JZ Replacement of Right Hip Joint with Synthetic Substitute, Open Approach (ICD-10-PCS; principal; 2019-09-25 06:45)
DX: M16.51 Unilateral post-traumatic osteoarthritis, right hip (principal); S72.91XS Unspecified fracture of right femur, sequela; F17.210 Nicotine dependence, cigarettes, uncomplicated; E66.9 Obesity, unspecified; Z79.899 Other long term (current) drug therapy; Z96.642 Presence of left artificial hip joint; Z68.37 Body mass index [BMI] 37.0-37.9, adult
CPT/HCPCS: 01214; 64450; 72170; 76942; 97110; 97161; C1776; J0690; J1885; J2001; J2250; J2405; J2704; J2795; J3010; J7121

== ENCOUNTER 2020-01-11 15:05 | Emergency (ER) | payer OTHER ==
[~2020-01-11] VITALS: Ht 172.7 cm; Wt 112.9 kg
--- OUTSIDE RECORDS SUMMARY | 2020-01-11 15:08 | XMS ---
PreManage Notification: JENIFER LANIER Security Consulting Psychiatrist Events No recent Security Events currently on file [facility] There are no care providers on record at this time. [facility] has no Care Guidelines for this patient. Kimberly VISIT COUNT (12 MO.) 2 [facility] TOTAL 2 NOTE: Visits indicate total known visits. ED/C VISIT TRACKING (12 MO.) 01/11/2020 15:07 [facility] [place] TYPE: Emergency COMPLAINT: - REDNESS ON PIERCING 06/12/2019 16:24 [facility] [place] TYPE: Emergency COMPLAINT: - LEFT ARM/SHOULDER PAIN NON INJURY DIAGNOSES: - Radiculopathy, cervical region - Pain in left arm - Nicotine dependence, unspecified, uncomplicated - Other oil heaterman (current) drug therapy INPATIENT VISIT TRACKING (12 MO.) No inpatient visits to display in this time frame [id number]
[2020-01-11] MEDS ORDERED: CELEBREX50 MG PO (15:24)
[2020-01-11] MEDS ORDERED: BACTRIM DS TAB1 EACH PO (16:05)
== END 2020-01-11 16:25 | disposition home or self-care (01) ==
LOC: ED 15:05
DX: S00.85XA Superficial foreign body of other part of head, initial encounter (principal); L08.9 Local infection of the skin and subcutaneous tissue, unspecified; W45.8XXA Other foreign body or object entering through skin, initial encounter; F17.200 Nicotine dependence, unspecified, uncomplicated; Z79.899 Other long term (current) drug therapy
CPT/HCPCS: 10060; 99283-25